=== PATIENT | female | born 1990 | race Caucasian/White ===

== ENCOUNTER 2016-06-25 20:46 | Inpatient (IN) | payer OTHER ==
[~2016-06-25] VITALS: Ht 165.1 cm; Wt 70.3 kg
[~2016-06-25 20:46] MED LIST: MTR600X PO; PRENTAB26 PO
[2016-06-25] MEDS ORDERED: CHOL1000 PO (21:26)
[2016-06-25 21:28] VITALS: Ht 165.1 cm; Wt 70.3 kg
[2016-06-25] MEDS ORDERED: LACTATED RINGER'S 1000ML 1,000 ML IV SCH (23:00)
[2016-06-25] MEDS ORDERED: LACTATED RINGER'S 1000ML 1,000 ML IV PRN (23:00)
[2016-06-25 23:20] LABS: HEMATOCRIT 33.2 % (37-47); MEAN CELL VOLUME 80.8 fL (80-100); MEAN CORPUSCULAR HGB CONC 34.6 g/dl (32-36); MEAN PLATELET VOLUME 9.7 fL (7.4-10.4); PLATELET COUNT 337 K/uL (130-400); RED BLOOD COUNT 4.11 M/uL (4.2-5.4)
[2016-06-25] MEDS ORDERED: BUPIVACAINE 0.25% 30 ML VIAL ONE (23:30)
[2016-06-25] MEDS ORDERED: FENTANYL CITRATE INJ 50 MCG/1 ML 2 ML VIAL ONE (23:30)
[2016-06-25] MEDS ORDERED: FENTANYL 2MCG/ML ROPIV 1.25MG/ML 100ML BAG EPI ONE (23:30)
[2016-06-25] MEDS ORDERED: EpHEDrine SULFATE INJ 50 MG/ML AMP ONE (23:30)
[2016-06-25] MEDS ORDERED: ONDANSETRON INJ 2 MG/ML 2 ML VIAL IV PRN (23:45)
--- NOTE | 2016-06-25 23:45 | HISTORY & PHYSICAL EXAMINATION ---
DATE OF ADMISSION: 06/25/2016 CHIEF COMPLAINT: Contractions. HISTORY OF PRESENT ILLNESS: The patient is a 25-year-old G3, P2-0-0-2 at 38 weeks and 6 days of gestation who presented with uterine contractions since this morning. They become regular and more painful in the evening. She was here about 2 hours ago when her cervix was 3-4 cm, 60%, minus 3. She ambulated and she came back to her bed complaining of more contractions, more painful and she is desiring epidural for pain. Her cervix changed to 4-5 cm, 80%, minus 3 with bulging membranes. She denies leakage of fluid. She reported mild bloody discharge all day today. She reported good movements. She denies fever, chills, chest pain, shortness of breath, headache, change in her vision, nausea, vomiting or epigastric pain. Her has been uncomplicated. PAST MEDICAL HISTORY: Unremarkable. She has a history of scoliosis and acne. PAST SURGICAL HISTORY: [place] teeth extraction and breast biopsy. MEDICATIONS: vitamins. ALLERGIES: Retin-A SOCIAL HISTORY: The patient denies smoking, alcohol or drug use. She is , lives with her family. GYNECOLOGIC HISTORY: The patient denies any history of STDs including Chlamydia, gonorrhea, herpes. OBSTETRICAL HISTORY: This is her third . She had 2 full term spontaneous vaginal deliveries in 2012 and 2013 without any complications. LABORATORIES: Blood type is AB positive, antibody screen negative, hepatitis B surface antigen negative, RPR nonreactive, rubella titer positive. CBC: H\T\H was 13/37, platelets 308. GC chlamydia cultures were negative. Glucola was 92 mg per deciliter. Repeat H\T\H was 11/32.5. GBS culture was negative on June 11. PHYSICAL EXAMINATION: GENERAL: The patient is alert, oriented x3, not in acute distress. CARDIOVASCULAR SYSTEM: S1, S2, RRR. LUNGS: Clear to auscultation bilaterally. ABDOMEN: Soft, gravid, [place] 7-1/2 to 8 pounds. EXTREMITIES: Nontender, no edema. PELVIC: 4-5 cm dilated, 80%, minus 3 with bulging membranes and vertex heart rate 140s, category 1. Tocometer contractions every 2-4 minutes. ASSESSMENT AND PLAN: The patient is a 35-year-old G3, P2-0-0-2 at 38 weeks and 6 days of gestation presenting with regular contractions and cervical change. Vital signs stable, afebrile. No medical problems. GBS negative. heart rate reassuring. Plan is admit her to start IV fluids, CBC and consult anesthesiology for epidural for pain and expectant management. The patient understands and agrees with plan. All questions were answered. NITIN
[2016-06-26] MEDS ORDERED: LACTATED RINGER'S 1000ML 500 ML IV PRN (00:10)
[2016-06-26] MEDS ORDERED: EpHEDrine SULFATE INJ 50 MG/ML AMP IV PRN (00:15)
[2016-06-26] MEDS ORDERED: DiphenhydrAMINE HCL 50 MG/ML VIAL IV PRN (00:15)
[2016-06-26] MEDS ORDERED: NALBUPHINE HCL INJ 10 MG/ML AMP IV PRN (00:15)
[2016-06-26] MEDS ORDERED: NALOXONE HCL INJ 0.4 MG/1 ML VIAL/CARP IV PRN (00:15)
[2016-06-26] MEDS ORDERED: FENTANYL 2MCG/ML ROPIV 1.25MG/ML 100ML BAG EPI PRN (00:15)
[2016-06-26] MEDS ORDERED: ONDANSETRON INJ 2 MG/ML 2 ML VIAL IV PRN (00:15)
[2016-06-26] MEDS ORDERED: OXYTOCIN 30 UNITS/500ML NSS IV ONE (03:15)
[2016-06-26] MEDS ORDERED: BENZOCAINE 20% AER SPR 82.5 GM CAN EXT PRN (03:45)
[2016-06-26] MEDS ORDERED: HYDROCORTISONE ACETATE 25 MG SUPP PR PRN (03:45)
[2016-06-26] MEDS ORDERED: IBUPROFEN 600 MG TAB PO PRN (03:45)
[2016-06-26] MEDS ORDERED: LANOLIN OINT EXT PRN ×2 (03:45)
[2016-06-26] MEDS ORDERED: OXYTOCIN 30 UNITS/500ML NSS IV PRN (03:45)
[2016-06-26] MEDS ORDERED: OXYCODONE/ACETAMINOPHEN 5-325 TAB PO PRN (03:45)
[2016-06-26] MEDS ORDERED: MEASLES, MUMPS & RUBELLA VIRUS VIAL SQ. ONE (03:45)
[2016-06-26] MEDS ORDERED: ACETAMINOPHEN 325 MG TAB PO PRN (03:45)
[2016-06-26] MEDS ORDERED: DIPHTHERIA/TETANUS/PERTUSSIS 0.5 ML SYR/VIAL IM. ONE (03:45)
[2016-06-26] MEDS ORDERED: SUPERCREAM 0.870 % 15GM JAR EXT PRN (03:45)
[2016-06-26 06:00] VITALS: BP 98/62; PULSE 88; TEMP 36.7
--- NOTE | 2016-06-26 06:04 | OPERATIVE REPORT ---
DATE OF OPERATION: 06/26/2016 TIME OF DELIVERY OF BABY: 0321 a.m. TIME OF DELIVERY OF PLACENTA: 0330 a.m. DETAILS OF DELIVERY: The patient was found to be fully dilated and desired to push. She pushed only once and delivered the head with the intact membranes bulging. There was a nuchal cord around the neck x1, which was reduce and membranes were ruptured producing clear fluids The shoulders were delivered with minimal traction, baby was handed off to the mother where mouth and nose were suctioned. Cord was clamped x2 and cut. It was a 3-vessel cord. Perineum and vagina were checked for lacerations. There was a small first-degree laceration on the left upper labia minora, which was repaired with 3-0 Vicryl on an SH needle with a [id number] stitch x1. Good hemostasis was achieved. The rest of the vagina and perineum were intact. Then, the placenta was found to be in the vagina and delivered spontaneously as intact and complete. Uterus was explored and found to be empty and the fundus was firm. EBL was 50 ml. Mom and baby tolerated the procedure well. Sponge, lap and needle counts were correct x2. The baby was a viable female , Apgars 8/9. Weight is pending. No complications happened and I was present during whole procedure. I attest to the content of the Intraoperative Record and any orders documented therein. Any exceptions are noted below. MTDD
[2016-06-26] MEDS: PRENATAL VITAMIN TAB PO SCH (08:01)
[2016-06-26] MEDS: DOCUSATE SODIUM 100 MG CAP PO SCH ×2 (08:01→19:52)
[2016-06-26] MEDS: FERROUS SULFATE 325 MG TAB PO SCH (08:01)
--- NOTE | 2016-06-26 09:09 | Anesthesia Procedure Note ---
Anesthesia Epidural Removal Nt Date & Time Jun 26, 2016 at 09:09 Vital Signs Pain Intensity: 0.0 Vital Signs Past 12 Hours Date Time Temp Pulse Resp B/P Pulse Ox O2 Delivery O2 Flow Rate FiO2 06/26/16 06:00 36.7 88 16 98/62 Room Air 06/26/16 06:00 Room Air Notes Mental Status: alert / awake / arousable, participated in evaluation Nausea / Vomiting: adequately controlled Pain: adequately controlled Airway Patency, RR, SpO2: stable & adequate BP & HR: stable & adequate Hydration State: stable & adequate Neuraxial Anesthesia: was administered Anesthetic Complications: no major complications apparent, pt satisfied with anesthetic care Epidural: removed without complications, with tip intact
[2016-06-26 09:33] VITALS: BP 109/67; PULSE 73; TEMP 36.7
[2016-06-26 12:30] VITALS: BP 108/70; PULSE 89; TEMP 36.7
[2016-06-26 15:53] VITALS: BP 112/73; PULSE 88; TEMP 36.5
[2016-06-26 19:25] VITALS: BP 113/70; PULSE 68; TEMP 36.7; O2SAT 98
[2016-06-26 23:30] VITALS: BP 107/70; PULSE 66; TEMP 36.6; O2SAT 97
[2016-06-27 03:50] VITALS: BP 96/55; PULSE 60; TEMP 36.8; O2SAT 97
[2016-06-27 07:11] LABS: HEMATOCRIT 32.6 % (37-47)
[2016-06-27 07:40] VITALS: BP 122/87; PULSE 76; TEMP 36.4
[2016-06-27] MEDS: PRENATAL VITAMIN TAB PO SCH (07:50)
[2016-06-27] MEDS: DOCUSATE SODIUM 100 MG CAP PO SCH (07:50)
[2016-06-27] MEDS: FERROUS SULFATE 325 MG TAB PO SCH (07:50)
--- NOTE | 2016-06-27 09:00 | OB/GYN Progress Note ---
OFFSET PRINTER Progress Note Date of Service: Jun 27, 2016. Patient is seen and examined. She feels well, no complaints. likes to go home Ambulating without dizziness Voiding without difficulty Tolerating regular diet with out N&V Bleeding is minimal No fever/ chills/ CP/ SOB/ N&V/ Leg pain Breast feeding without problems Date Time Temp Pulse Resp B/P Pulse Ox O2 Delivery O2 Flow Rate FiO2 06/27/16 07:40 36.4 76 20 122/87 06/27/16 03:50 36.8 60 16 96/55 97 Room Air 06/26/16 23:30 97 Room Air 06/26/16 23:30 36.6 66 18 107/70 97 Room Air 06/26/16 19:25 36.7 68 20 113/70 98 Room Air 06/26/16 15:53 36.5 88 20 112/73 06/26/16 12:30 36.7 89 20 108/70 06/26/16 09:33 36.7 73 20 109/67 Last 24 Hours Test 06/27/16 06:20 Hemoglobin 11.3 g/dL Hematocrit 32.6 % PE: General: Alert, orientedx3, NAD Abd: soft, NT, fundus firm, below Umbilicus Perineum intact, Lochia rubra minimal Ext; NT, no edema AP: 25 yo s/p , ppd# 1 VSS Afebrile doing well Continue routine care All questions were answered Instructions were given when to call D/C home , f/u in office
--- NOTE | 2016-06-27 09:01 | Discharge Instructions ---
Discharge Instructions Admission Reason for Admission: Check Labor Discharge Discharge Diagnosis / Problem: Discharge Goals Goal(s): Routine recovery after delivery Medications Continue Dispensed Medications: lansinoh Activity Recommendations Activity Limitations: as noted below Lifting Limitations: gradually increase as tolerated Exercise/Sports Limitations: until after follow-up appointment May Resume Sexual Activity: after follow-up appointment Shower/Bathe: no limitations Driving or Machine Use: ACTIVITY RECOMMENDATIONS: * Gradual return to full activity over the next 2-3 weeks. * No lifting - nothing heavier than baby over the next 2-3 weeks. * Do not engage in vigorous exercise, sexual activity or sports until cleared by your physician. * Do not drive or operate any motorized equipment until cleared by your physician. * You may shower/bathe daily. BREAST CARE: If you are not breast feeding: * Wear a supportive bra 24 hours a day for one to two weeks. * Avoid stimulating your breasts and nipples as much as possible during the first few weeks after delivery. * When taking a shower, have the warm water hit your back, not breasts. * When your breasts feel full, apply ice packs. Usually three to four times a day helps ease the discomfort. * Take a mild pain medication (Tylenol/Motrin) when you are uncomfortable. If breast feeding: * Use breast milk to lubricate nipples. Lansinoh cream may be used for sore nipples. You do not need to remove cream prior to breast feeding. If using a different brand of cream, check the label for directions regarding removal of cream prior to nursing. * Wear a supportive bra. * If having problems with breasts or breast feeding, call a analytical consultant or your health care provider. EPISIOTOMY CARE: After delivery, if you have an episiotomy (stitches), the following steps will ease discomfort and aid healing. * For the first 24 hours after delivery, place ice packs next to your episiotomy to help reduce swelling. * After the first 24 hour-period, sitz baths, either portable or in the tub, are suggested. A shower with a shower arm sprayed over the episiotomy may be comforting. * Opal care should be done after each voiding and bowel movement. Squirt warm water from a plastic bottle over the perineum (region of the body between the anus and urinary opening) and pat dry. * Use Dermoplast to ease discomfort. Shake container. [place] directly over the episiotomy. * Place a Tucks on a clean sanitary pad next to your episiotomy. OVER THE COUNTER MEDICATION: * For discomfort or pain, you may use Acetaminophen (Tylenol), Ibuprofen (Advil ), or Naproxen (Aleve) following the package directions. * For constipation you may use Colace following the package directions. SPECIAL CARE INSTRUCTIONS: When you are discharged from the hospital, it is important for you to follow the instructions listed below: * During the first week at home, you should be able to care for yourself and your baby. In addition, the usual light household activities are encouraged. * Limit your activities to the way you feel. Do not try to clean the house or move furniture. Be sensible. * If you actively engage in sports and have done so up until the time of your delivery, you may resume these activities as soon as you feel able. This may take up to one month or even longer. Use good judgment. * Continue to take your vitamins for at least six weeks after the of your baby. * Your diet need not be limited unless you were on a special diet before your delivery. Breast-feeding mothers need around 2500 calories per day and at least 64-80 ounces of fluid per day (8 to 10 glasses). * You should eat foods from the four major food groups. Crash diets or fad diets are to be avoided. Eating lean meats, fresh fruits and vegetables, low-fat dairy products, high fiber foods and a regular exercise program, will help you get back to your pre- weight without putting your health at risk. * Constipation is sometimes a problem after delivery. Take a mild laxative as needed. If breast feeding, Milk of Magnesia is acceptable to use. You may use a suppository or Fleets enema if no episiotomy. * A daily shower or tub bath is suggested. Be sure to thoroughly and gently dry the perineum. * A bloody vaginal discharge will usually continue until around four weeks post . A small amount of bleeding may continue for as long as six weeks. Vaginal discharge changes from the bright red bleeding after delivery to pink then brownish and finally yellowish-pink before becoming white and disappearing. * Bleeding may increase with activity. Your first period may come in 4-8 weeks. If you are breast feeding, your period may be delayed even longer. * [place] (sex) can begin whenever both you and your partner feel comfortable and do not have any form of genital infection. It is recommended that you wait until after your return appointment and discuss with your physician. If you have questions, please talk to your health care practitioner. A condom should be used to prevent infection and . * Foreplay, gentle intercourse and lubrication is very important the first several times to prevent pain. A water-based lubricant such as K-Y jelly or Astroglide may be used. * Tampons may be used six weeks after delivery. * Douching should be avoided for 6 weeks after delivery. * If you have RH negative blood and your baby is RH positive, you will receive RHOGAM by injection prior to discharge. The nurse will give you a card to keep with you that has the date and place that you received RHOGAM after delivery. * During your care, you had a Rubella screen done to check for the presence of rubella antibodies in your blood. If your test was negative, you will receive a Rubella vaccine prior to discharge. This vaccine may cause a fever, soreness at the injection site and flu-like symptoms. If these symptoms persist, notify your health care practitioner. is not advised for three months after a Rubella vaccine. There is a higher chance of having a baby with defects if conceived within three months of getting the vaccine. * If you were discharged 24 hours from delivery or before 48 hours: Visiting nurses will come to your home 48 hours after discharge to assess you and your baby. The visiting nurse will meet with you while you are in the hospital to arrange a time and get directions to your home. * Verbalizes understanding of car seat law as reviewed with patient nursing. * Car Seat hand-out given and reviewed with patient by nursing. * Shaken baby information reviewed with patient by nursing. Call you doctor if: * Heavy bleeding (saturating several pads an hour) or passing clots the size of your fist. * A fever >101 degrees F (38.3 degrees C) on two occasions four hours apart and/or chills. * Unusual pain in the pelvic or vaginal areas. * "Baby Blues" lasting longer than two weeks. If you have any questions or concerns, call your health care practitioner at . FOLLOW-UP VISIT: * Please call the office at to schedule a 6 week examination. It is important you keep this appointment. * It is important for you to make arrangements for either yearly or twice yearly check-ups thereafter. . Current Hospital Diet Patient's current hospital diet: Regular OB Diet Discharge Diet Recommended Diet: Regular Diet Pending Studies Studies pending at discharge: no Medical Emergencies . Who to Call and When: Medical Emergencies: If at any time you feel your situation is an emergency, please call 911 immediately. . Non-Emergent Contact Non-Emergency issues call your: Primary Care Provider, Surgeon Call Non-Emergent contact if: temperature is above 100.5, your pain is not controlled . . "Provider Documentation" section prepared by Simone Zambrano. VTE Core Measure Inpt VTE Proph given/why not?: Treatment not indicated
[2016-06-27 13:08] VITALS: BP_DIAS 87; PULSE 76; TEMP 36.4
[2016-06-27] MEDS ORDERED: BISACODYL 5 MG TABEC PO SCH (20:00)
[2016-06-28] MEDS ORDERED: BISACODYL 10 MG SUPP PR PRN (07:00)
== END 2016-06-27 13:36 | disposition home or self-care (01) | DRG 775 ==
LOC: C.OPB 20:46 → C.LD 20:46 → C.OPB 23:01 → C.OBG 06-26 05:48
PROVIDERS: ADMIT Obstetrics & Gynecology; ATTEND Obstetrics & Gynecology
PROC: 10E0XZZ Delivery of Products of Conception, External Approach (ICD-10-PCS; principal; 2016-06-26)
PROC: 0HQ9XZZ Repair Perineum Skin, External Approach (ICD-10-PCS; principal; 2016-06-26)
DX: O69.81X0 Labor and delivery complicated by cord around neck, without compression, not applicable or unspecified (principal); Z3A.38 38 weeks gestation of pregnancy; Z37.0 Single live birth